=== PATIENT | female | born 1950 | race Caucasian/White ===

== ENCOUNTER → 2019-07-23 | Outpatient (CLI) | payer MEDICARE ==
--- NOTE | 2019-07-23 16:20 | Diagnostic Imaging Report ---
INDICATION: Fall with continued right wrist pain. TIME OF EXAM: 2:06 p.m. FINDINGS: Two views of the right wrist are obtained. The distal radius and ulna are intact. The carpus appears intact. Metacarpals are unremarkable. No fractures are seen. IMPRESSION: No acute bony abnormality is detected. Dictated by: Dictated on workstation # [id number]
== END ==
LOC: RAD FS 13:55
PROVIDERS: ATTEND Nurse Practitioner
DX: M25.531 Pain in right wrist (principal); W19.XXXA Unspecified fall, initial encounter
CPT/HCPCS: 73100

== ENCOUNTER 2020-06-22 13:21 | Emergency (ER) | payer MEDICARE ==
[~2020-06-22] VITALS: Ht 160 cm; Wt 80.4 kg
--- NOTE | 2020-06-22 13:28 | ED General ---
General Stated Complaint: BP 180/102 History of Present Illness Date Seen by Provider: Jun 22, 2020 Time Seen by Provider: 13:28 Initial Comments 70-year-old female presents with headache, nausea, feels like her heart beat a little bit fast. Chest some mild generalized malaise. No reports of fever, cough, vomiting or diarrhea. Patient reports the symptoms started this morning. She is concerned her blood pressure was little bit high at home after they checked it a couple times. It started out normal and then got a higher is they checked it. Patient has no chest pain, shortness of breath. Agent does report a history of migraines and this is somewhat similar to her migraines. Allergies and Home Medications Allergies Coded Allergies: No Known Allergies (Verified Allergy, Unknown, 06/22/20) Patient Home Medication List Home Medication List Reviewed: Yes Review of Systems Review of Systems Constitutional: No chills, No fever; malaise Respiratory: No cough, No short of breath Cardiovascular: No chest pain; palpitations Gastrointestinal: No abdominal pain; nausea; No vomiting Musculoskeletal: no symptoms reported Skin: no symptoms reported Psychiatric/Neurological: Headache Past Gduvkll-Xtzjpy-Mpcvfp Hx Past Med/Social Hx: Reviewed Nursing Past Med/Soc Hx Patient Social History Recent Foreign Travel: No Contact w/Someone Who Travel: No Physical Exam Vital Signs Vital Signs - First Documented 06/22/20 13:28 Temp 36.7 Pulse 128 Resp 16 B/P (MAP) 172/ O2 Delivery Room Air Capillary Refill : Height, Weight, BMI Height: '" Weight: lbs. oz. 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 Norm as Tested Progress/Results/Core Measures Suspected Sepsis SIRS Temperature: Pulse: Respiratory Rate: Laboratory Tests 06/22/20 13:45: White Blood Count 12.1H Blood Pressure / Mean: Laboratory Tests 06/22/20 13:45: Creatinine 0.70, Platelet Count 342, Total Bilirubin 0.3 Results/Orders Lab Results Laboratory Tests Test 06/22/20 13:33 06/22/20 13:45 06/22/20 13:54 Range/Units Urine Color YELLOW Urine Clarity CLEAR Urine pH 6.0 5-9 Urine Specific [place] 1.010 L 1.016-1.022 Urine Protein NEGATIVE NEGATIVE Urine Glucose (UA) NEGATIVE NEGATIVE Urine Ketones NEGATIVE NEGATIVE Urine Nitrite NEGATIVE NEGATIVE Urine Bilirubin NEGATIVE NEGATIVE Urine Urobilinogen 0.2 < = 1.0 MG/DL Urine Leukocyte Esterase 1+ H NEGATIVE Urine RBC (Auto) TRACE H NEGATIVE Urine RBC RARE /HPF Urine WBC 2-5 /HPF Urine Squamous Epithelial Cells 10-25 H /HPF Urine Crystals NONE /LPF Urine Bacteria NONE /HPF Urine Casts NONE /LPF Urine Mucus NEGATIVE /LPF Urine Culture Indicated NO White Blood Count 12.1 H 4.3-11.0 10^3/uL Red Blood Count 4.29 L 4.35-5.85 10^6/uL Hemoglobin 13.0 11.5-16.0 G/DL Hematocrit 39 35-52 % Mean Corpuscular Volume 91 80-99 FL Mean Corpuscular Hemoglobin 30 25-34 PG Mean Corpuscular Hemoglobin Concent 33 32-36 G/DL Red Cell Distribution Width 13.0 10.0-14.5 % Platelet Count 342 130-400 10^3/uL Mean Platelet Volume 9.6 7.4-10.4 FL Immature Granulocyte % (Auto) 0 % Neutrophils (%) (Auto) 94 H 42-75 % Lymphocytes (%) (Auto) 3 L 12-44 % Monocytes (%) (Auto) 2 0-12 % Eosinophils (%) (Auto) 0 0-10 % Basophils (%) (Auto) 0 0-10 % Neutrophils # (Auto) 11.4 H 1.8-7.8 X 10^3 Lymphocytes # (Auto) 0.4 L 1.0-4.0 X 10^3 Monocytes # (Auto) 0.3 0.0-1.0 X 10^3 Eosinophils # (Auto) 0.0 0.0-0.3 10^3/uL Basophils # (Auto) 0.0 0.0-0.1 10^3/uL Immature Granulocyte # (Auto) 0.0 0.0-0.1 10^3/uL Neutrophils % (Manual) 75 % Lymphocytes % (Manual) 3 % Monocytes % (Manual) 4 % Eosinophils % (Manual) 1 % Basophils % (Manual) 0 % Band Neutrophils 17 % Blood Morphology Comment NORMAL Sodium Level 138 135-145 MMOL/L Potassium Level 4.1 3.6-5.0 MMOL/L Chloride Level 102 98-107 MMOL/L Carbon Dioxide Level 23 21-32 MMOL/L Anion Gap 13 5-14 MMOL/L Blood Urea Nitrogen 13 7-18 MG/DL Creatinine 0.70 0.60-1.30 MG/DL Estimat Glomerular Filtration Rate > 60 BUN/Creatinine Ratio 19 Glucose Level 144 H 70-105 MG/DL Calcium Level 8.9 8.5-10.1 MG/DL Corrected Calcium 8.6 8.5-10.1 MG/DL Total Bilirubin 0.3 0.1-1.0 MG/DL Aspartate Amino Transf (AST/SGOT) 28 5-34 U/L Alanine Aminotransferase (ALT/SGPT) 21 0-55 U/L Alkaline Phosphatase 82 40-136 U/L Troponin I < 0.30 <0.30 NG/ML C-Reactive Protein 1.83 H <0.50 MG/DL Total Protein 7.0 6.4-8.2 GM/DL Albumin 4.4 3.2-4.5 GM/DL Glucometer 116 H 70-110 MG/DL My Orders Orders - LIU,VICTORINO L DO Accucheck Stat ONCE (06/22/20 13:33) Ed Iv/Invasive Line Start (06/22/20 13:33) Ekg Tracing (06/22/20 13:33) Monitor-Rhythm Ecg Trace Only (06/22/20 13:33) Chest 1 View Ap/Pa Only (06/22/20 13:33) Cbc With Automated Diff (06/22/20 13:33) Comprehensive Metabolic Panel (06/22/20 13:33) Ua Culture If Indicated (06/22/20 13:33) Crp Fs (06/22/20 13:33) Troponin I Fs (06/22/20 13:33) Ondansetron Injection (Zofran Injectio (06/22/20 13:45) Lactated Ringers (Lr 1000 Ml Iv Solution (06/22/20 13:33) Manual Differential (06/22/20 13:45) Ketorolac Injection (Toradol Injection) (06/22/20 15:09) Metoclopramide Injection (Reglan Injecti (06/22/20 15:09) Medications Given in ED Current Medications Medications Dose Ordered Sig/Kanwal Route Start Time Stop Time Status Last Admin Dose Admin Ondansetron HCl 4 mg ONCE ONCE IVP 06/22/20 13:45 06/22/20 13:46 DC 06/22/20 13:43 4 MG Vital Signs/I&O 06/22/20 13:28 Temp 36.7 Pulse 128 Resp 16 B/P (MAP) 172/ O2 Delivery Room Air Capillary Refill : Progress Note : Time: 15:55 Progress Note Patient with a slight elevation of her CRP white blood cell count. Her tachycardia improved with some IV fluids. I suspect that she has a mild viral syndrome. She reports no COVID exposure, no cough, shortness of breath. She does have a history of migraines and this is likely contributing to her headache. She is stable upon discharge. I recommend she follow-up with Dr. salinas in 2-3 days for recheck of symptoms Departure Impression Primary Impression: Viral syndrome Additional Impression: Migraine Qualified Codes: G43.909 - Migraine, unspecified, not intractable, without status migrainosus Disposition: 01 HOME, SELF-CARE Condition: Stable Departure-Patient Inst. Referrals: ANA SALINAS MD (PCP/Family) Primary Care Physician Patient Instructions: Migraines in Adults, Viral Syndrome (DC) Add. Discharge Instructions: Follow-up with Dr. salinas in 2-3 days for recheck in today symptoms sooner if they worsen VICTORINO LIU DO Jun 22, 2020 13:28
[2020-06-22] MEDS ORDERED: LACTATED RINGERS 1,000 ML IV STA (13:33)
[2020-06-22] MEDS ORDERED: ONDANSETRON 4 MG/2 ML (SDV) Z0FRAN IVP ONE (13:45)
[2020-06-22 14:01] LABS: WHITE BLOOD COUNT 12.1 10^3/uL (4.3-11.0)
[2020-06-22 14:02] LABS: BASOPHILS % (AUTO) 0 % (0-10); EOSINOPHILS % (AUTO) 0 % (0-10); HEMATOCRIT 39 % (35-52); LYMPHOCYTES # (AUTO) 0.4 X 10^3 (1.0-4.0); LYMPHOCYTES % (AUTO) 3 % (12-44); MEAN CORPUSCULAR HEMOGLOBIN 30 PG (25-34); MEAN CORPUSCULAR HGB CONC 33 G/DL (32-36); MEAN CORPUSCULAR VOLUME 91 FL (80-99); MEAN PLATELET VOLUME 9.6 FL (7.4-10.4); MONOCYTES # (AUTO) 0.3 X 10^3 (0.0-1.0); MONOCYTES % (AUTO) 2 % (0-12); NEUTROPHILS # (AUTO) 11.4 X 10^3 (1.8-7.8); NEUTROPHILS % (AUTO) 94 % (42-75); PLATELET COUNT 342 10^3/uL (130-400)
--- NOTE | 2020-06-22 14:04 | Diagnostic Imaging Report ---
INDICATION: Palpitations. Time of exam 1:45 p.m. No prior studies are available for comparison. The heart size is normal. The pulmonary vascularity is unremarkable. The lungs are clear. No infiltrate, effusion or pneumothorax is detected. IMPRESSION: No acute cardiopulmonary process is detected. Dictated by: Dictated on workstation # [id number]
[2020-06-22 14:15] LABS: BILIRUBIN,URINE NEGATIVE (NEGATIVE); CLARITY,URINE CLEAR; COLOR,URINE YELLOW; GLUCOSE, URINE (UA) NEGATIVE (NEGATIVE); KETONES,URINE NEGATIVE (NEGATIVE); LEUKOCYTE ESTERASE ,URINE 1+ (NEGATIVE); NITRITE,URINE NEGATIVE (NEGATIVE); PROTEIN,URINE NEGATIVE (NEGATIVE); RBC,URINE RARE /HPF
--- NOTE | 2020-06-22 14:21 | NUR ---
PT'S CALLED AND REQUESTED AN UPDATE. INFORMED OF PT CONDITION AND TOLD THAT ALL TESTS HAVE NOT BEEN RESULTED YET.
[2020-06-22 14:23] LABS: CARBON DIOXIDE 23 MMOL/L (21-32); CHLORIDE 102 MMOL/L (98-107); POTASSIUM 4.1 MMOL/L (3.6-5.0); SODIUM 138 MMOL/L (135-145)
[2020-06-22 14:24] LABS: ALANINE AMINOTRANSFERASE 21 U/L (0-55); ALBUMIN 4.4 GM/DL (3.2-4.5); ALKALINE PHOSPHATASE 82 U/L (40-136); BILIRUBIN,TOTAL 0.3 MG/DL (0.1-1.0); BUN/CREATININE RATIO 19; CALCIUM 8.9 MG/DL (8.5-10.1); GFR ESTIMATED > 60; GLUCOSE 144 MG/DL (70-105)
[2020-06-22 14:40] LABS: BAND NEUTROPHILS 17 %; BASOPHILS % (MANUAL) 0 %; EOSINOPHILS % (MANUAL) 1 %; LYMPHOCYTES % (MANUAL) 3 %; MONOCYTES % (MANUAL) 4 %; NEUTROPHILS % (MANUAL) 75 %; RBC MORPH NORMAL
[2020-06-22] MEDS ORDERED: KETOROLAC 30 MG/ML VIAL IVP STA (15:09)
[2020-06-22] MEDS ORDERED: METOCLOPRAMIDE INJ 10 MG/2 ML (REGLAN) IVP STA (15:09)
[2020-06-22 16:09] VITALS: BP 141/69
== END 2020-06-22 16:09 | disposition home or self-care (01) ==
LOC: EDUNIT# 13:21 → ER FS 13:22
DX: B34.9 Viral infection, unspecified (principal); G43.909 Migraine, unspecified, not intractable, without status migrainosus
CPT/HCPCS: 36415; 71045; 80053; 81000; 82962; 84484; 85007; 85027; 86141; 93005; 93041

== ENCOUNTER → 2021-05-13 | Outpatient (CLI) | payer MEDICARE ==
--- NOTE | 2021-05-13 13:06 | Diagnostic Imaging Report ---
INDICATION: Right knee pain. Three views of the right knee were obtained. Alignment is normal. Joint spaces are well-maintained apart from mild medial compartmental narrowing. Articular surfaces are smooth. No fracture, dislocation or effusion is seen. IMPRESSION: No acute bony abnormality is detected. Dictated by: Dictated on workstation # [id number]
== END ==
LOC: RAD FS 10:20
PROVIDERS: ATTEND Nurse Practitioner
DX: M25.561 Pain in right knee (principal)
CPT/HCPCS: 73562